=== PATIENT | female | born 1945 ===

== ENCOUNTER 2017-05-12 20:52 | Emergency (ER) | payer MEDICARE, OTHER ==
[2017-05-12 20:52] VITALS: BMI 29.9
[2017-05-12 20:58] VITALS: RESP 20; O2SAT 98
--- NOTE | 2017-05-12 21:02 | C.PDOC ---
Time Seen by Provider: 05/12/17 21:02 Chief Complaint (Nursing): Dizziness/Lightheaded Past Medical History Vital Signs: Last Vital Signs Temp 97.7 F 05/12/17 20:56 Pulse 68 05/12/17 20:56 Resp 20 05/12/17 20:56 BP 158/75 H 05/12/17 20:56 Pulse Ox 98 05/12/17 20:56 - Medical History PMH: Arthritis, Diabetes (NIDDM), Fibromyalgia, Gastritis, HTN, Hypercholesterolemia Denies: Chronic Kidney Disease Surgical History: Cholecystectomy, Endoscopy Family History: States: Unknown Family Hx - Social History Hx Tobacco Use: No Hx Alcohol Use: No Hx Substance Use: No - Immunization History Hx Tetanus Toxoid Vaccination: Yes Hx Influenza Vaccination: Yes Hx Pneumococcal Vaccination: Yes ED Course And Treatment O2 Sat by Pulse Oximetry: 98 Disposition Counseled Patient/Family Regarding: Studies Performed, Diagnosis - Disposition Disposition Time: 21:02
--- NOTE | 2017-05-12 21:42 | C.PDOC ---
History Of Present Illness Patient states that her sugar was high at home and she felt somewhat dizzy, No cp, no palpitation, no f/c/n/v. Time Seen by Provider: 05/12/17 21:02 Chief Complaint (Nursing): Dizziness/Lightheaded History Per: Patient History/Exam Limitations: no limitations Onset/Duration Of Symptoms: Hrs Current Symptoms Are (Timing): Still Present Severity: Moderate Pain Scale Rating Of: 4 Current Diabetic Medications: Insulin Causative (Exacerbating) Factor(s): Other Associated Infectious Symptoms: denies: Cough, Nausea, Vomiting Treatment Prior To Provider Evaluation: None Recent travel outside of the [place]: No Additional History Per: Family Past Medical History Reviewed: Historical Data, Nursing Documentation, Vital Signs Vital Signs: Last Vital Signs Temp 97.7 F 05/12/17 20:56 Pulse 68 05/12/17 20:56 Resp 20 05/12/17 20:56 BP 158/75 H 05/12/17 20:56 Pulse Ox 98 05/12/17 22:14 - Medical History PMH: Arthritis, Diabetes (NIDDM), Fibromyalgia, Gastritis, HTN, Hypercholesterolemia Denies: Chronic Kidney Disease Surgical History: Cholecystectomy, Endoscopy Family History: States: No Known Family Hx - Social History Hx Tobacco Use: No Hx Alcohol Use: No Hx Substance Use: No - Immunization History Hx Tetanus Toxoid Vaccination: Yes Hx Influenza Vaccination: Yes Hx Pneumococcal Vaccination: Yes Review Of Systems Constitutional: Negative for: Fever, Chills Eyes: Negative for: Vision Change ENT: Negative for: Throat Pain Cardiovascular: Negative for: Chest Pain, Palpitations Respiratory: Negative for: Shortness of Breath Gastrointestinal: Negative for: Nausea, Vomiting, Abdominal Pain Genitourinary: Negative for: Dysuria Musculoskeletal: Negative for: Back Pain Skin: Negative for: Rash Neurological: Positive for: Dizziness. Negative for: Weakness Psych: Negative for: Anxiety Physical Exam - Physical Exam Appears: Non-toxic, No Acute Distress Skin: Warm, Dry Head: Normacephalic Eye(s): bilateral: Normal Inspection Oral Mucosa: Moist Neck: Supple Chest: Symmetrical Cardiovascular: Rhythm Regular Respiratory: No Rales, No Rhonchi, No Wheezing Gastrointestinal/Abdominal: Soft, No Tenderness, No Distention Back: No CVA Tenderness Extremity: Normal ROM Extremity: Bilateral: Atraumatic, Normal Color And Temperature, Normal ROM Pulses: Left Dorsalis Pedis: Normal, Right Dorsalis Pedis: Normal Neurological/Psych: Oriented x3, Normal Speech, Normal Cognition Gait: Steady ED Course And Treatment - Laboratory Results Result Diagrams: 05/12/17 21:41 05/12/17 21:41 O2 Sat by Pulse Oximetry: 98 Pulse Ox Interpretation: Normal Medical Decision Making Medical Decision Making: Upon provider reevaluation patient is feeling better, is medically stable, and requires no further treatment in the ED at this time. Patient will be discharged home . Counseling was provided and all questions were answered regarding diagnosis and need for follow up withdr hossein. There is agreement to discharge plan. Return if symptoms persist or worsen. Disposition Counseled Patient/Family Regarding: Studies Performed, Diagnosis, Need For Followup - Disposition Referrals: Choco Sequeira [Staff Provider] - Disposition: HOME/ ROUTINE Disposition Time: 21:42 Condition: FAIR Instructions: Diabetic Hyperglycemia (ED) Forms: [employer] (Kittitian) Print Language: SAUDI ARABIAN - Clinical Impression Clinical Impression: Hyperglycemia
[2017-05-12 21:53] LABS: BASO % 0.7 % (0.0-2.0); EOS # 0.2 K/uL (0.0-0.7); EOS % 2.9 % (0.0-4.0); LYMPH # 1.9 K/uL (1.0-4.3); LYMPH % 29.3 % (20.0-40.0); MEAN CORPUSCULAR HEMOGLOBIN 28.7 pg (27.0-31.0); MEAN CORPUSCULAR HGB CONC 33.3 g/dL (33.0-37.0); MEAN PLATELET VOLUME 12.1 fL (7.2-11.7); MONO # 0.6 K/uL (0.0-0.8); MONO % 8.6 % (0.0-10.0); NRBC % 0.2 % (0.0-2.0); RED CELL DISTRIBUTION WIDTH 13.7 % (11.5-14.5); WHITE BLOOD COUNT 6.5 K/uL (4.8-10.8)
[2017-05-12 21:54] LABS: VENOUS BLOOD GAS BASE EXCESS 2.1 mmol/L (0.0-2.0); VENOUS BLOOD GAS PCO2 52 mmHg (40-60); VENOUS BLOOD PH 7.35 (7.32-7.43)
[2017-05-12 21:56] LABS: CHLORIDE 93 mmol/L (98-107); POTASSIUM 4.1 mmol/L (3.6-5.2); SODIUM 130 mmol/L (132-148)
[2017-05-12 21:58] LABS: BILIRUBIN,TOTAL 0.7 mg/dL (0.2-1.3); GFR AFRICAN-AMERICAN > 60
[2017-05-12 21:59] LABS: ALB/GLOB RATIO 1.4 (1.0-2.1); ALKALINE PHOSPHATASE 133 U/L (38-126); ALT/SGPT 26 U/L (9-52); AST/SGOT 10 U/L (14-36); BLOOD UREA NITROGEN 27 mg/dL (7-17); CALCIUM 9.2 mg/dl (8.6-10.4); CARBON DIOXIDE 24 mmol/L (22-30); TOTAL PROTEIN 7.6 g/dL (6.3-8.3)
[2017-05-12 22:02] LABS: GLUCOSE,RANDOM 602 mg/dL (65-105)
[2017-05-12] MEDS ORDERED: (Novolin R) Insulin Human Regular 100 units/ml vial ONE (22:10)
[2017-05-12] MEDS ORDERED: (Novolin R) Insulin Human Regular 100 units/ml vial IV STA (22:10)
[2017-05-12] MEDS ORDERED: Sodium Chloride 0.9% 1,000 ML IV ONE (22:11)
[2017-05-12 23:26] LABS: RBC URINE < 1 /hpf (0-3); URINE BILIRUBIN NEGATIVE (NEGATIVE); URINE BLOOD NEGATIVE (NEGATIVE); URINE COLOR Colorless (YELLOW); URINE GLUCOSE (UA) 3+ mg/dL (Normal); URINE KETONE NEGATIVE (NEGATIVE); URINE LEUKOCYTE ESTERASE NEG Leu/uL (Negative); URINE PROTEIN NEGATIVE (NEGATIVE); URINE UROBILINOGEN NORMAL mg/dL (0.2-1.0); WBC URINE < 1 /hpf (0-5)
[2017-05-12 23:37] VITALS: BP 155/81; PULSE 72; TEMP 98.1
--- NOTE | 2017-05-13 09:27 | RAD ---
PROCEDURE: CHEST RADIOGRAPH, 1 VIEW HISTORY: Diabetic COMPARISON: 08/18/2016 FINDINGS: LUNGS: Diffuse increased interstitial lung markings. No focal infiltrate or effusion. Few scattered areas of increased nodularity in the right suprahilar region and bilateral lung bases which may represent prominent vascularity. PLEURA: No pneumothorax or pleural fluid seen. CARDIOVASCULAR: Calcification at the aortic knob. OSSEOUS STRUCTURES: No significant abnormalities. VISUALIZED UPPER ABDOMEN: Normal. OTHER FINDINGS: None. IMPRESSION: Diffuse increased interstitial lung markings. No focal infiltrate or effusion. Few scattered areas of increased nodularity in the right suprahilar region and bilateral lung bases which may represent prominent vascularity.
== END 2017-05-12 23:27 | disposition home or self-care (01) ==
LOC: C.ER 20:52
DX: E11.9 Type 2 diabetes mellitus without complications (principal); E78.00 Pure hypercholesterolemia, unspecified; I10 Essential (primary) hypertension; M79.7 Fibromyalgia; Z79.4 Long term (current) use of insulin
CPT/HCPCS: 71010; 80053; 81001; 82009; 82803; 82948; 83690; 85025; 96360; 99285; J7040

== ENCOUNTER 2017-06-21 08:18 | Observation (INO) | payer MEDICARE, OTHER ==
[2017-06-21] MEDS ORDERED: Aspirin 325 mg EC Tablets PO STA (08:48)
[2017-06-21 08:58] VITALS: BMI 29.0
[2017-06-21 09:04] LABS: INR 1.1
[2017-06-21 09:07] LABS: ALB/GLOB RATIO 0.9 (1.0-2.1); ALKALINE PHOSPHATASE 77 U/L (38-126); ALT/SGPT 37 U/L (9-52); AST/SGOT 10 U/L (14-36); BILIRUBIN,TOTAL 0.4 mg/dL (0.2-1.3); BLOOD UREA NITROGEN 18 mg/dL (7-17); CALCIUM 8.6 mg/dl (8.6-10.4); CARBON DIOXIDE 26 mmol/L (22-30); CHLORIDE 106 mmol/L (98-107); CHOLESTEROL 229 mg/dL (0-199); GFR AFRICAN-AMERICAN > 60; GLUCOSE,RANDOM 234 mg/dL (65-105); POTASSIUM 3.6 mmol/L (3.6-5.2); SODIUM 136 mmol/L (132-148); TOTAL PROTEIN 8.1 g/dL (6.3-8.3)
[2017-06-21 09:08] LABS: BASO % 0.4 % (0.0-2.0); EOS # 0.1 K/uL (0.0-0.7); EOS % 2.4 % (0.0-4.0); HEMATOCRIT 35.6 % (34.0-47.0); LYMPH % 36.3 % (20.0-40.0); MEAN CELL VOLUME 86.1 fL (81.0-99.0); MEAN CORPUSCULAR HEMOGLOBIN 28.9 pg (27.0-31.0); MEAN CORPUSCULAR HGB CONC 33.5 g/dL (33.0-37.0); MEAN PLATELET VOLUME 11.8 fL (7.2-11.7); MONO # 0.4 K/uL (0.0-0.8); MONO % 7.2 % (0.0-10.0); WHITE BLOOD COUNT 5.6 K/uL (4.8-10.8)
--- NOTE | 2017-06-21 10:22 | C.PDOC ---
History Of Present Illness Marci Austin is a 71 year old female, with a past medical history of HTN, diabetes, and hypercholesterolemia, who was brought to the emergency department by ALS complaining of dizziness, nausea and diaphoresis onset since yesterday. Patient denies chest pain but does state that her throat hurts. When she presented she had an EKG that showed A-fib at a rate of 87 bpm. Patient denies palpitations or any cardiac history. She denies any fever, chills, cough, and shortness of breath. No further medical complaints. PMD: Choco Sequeira Time Seen by Provider: 06/21/17 08:27 Chief Complaint (Nursing): Dizziness/Lightheaded History Per: Patient History/Exam Limitations: no limitations Onset/Duration Of Symptoms: Days (X1) Current Symptoms: dizzines, nausea and diaphoresis Seizure Or Post-ictal Symptoms: None Fall Associated With With Symptoms: No Pain Scale Rating Of: 0 Past Medical History Reviewed: Historical Data, Nursing Documentation, Vital Signs Vital Signs: Last Vital Signs Temp 97.8 F 06/21/17 08:39 Pulse 57 L 06/21/17 10:49 Resp 12 06/21/17 10:49 BP 135/59 L 06/21/17 10:49 Pulse Ox 99 06/21/17 11:03 - Medical History PMH: Arthritis, Diabetes (NIDDM), Fibromyalgia, Gastritis, HTN, Hypercholesterolemia Denies: Chronic Kidney Disease Surgical History: Cholecystectomy, Endoscopy Family History: States: Unknown Family Hx - Social History Hx Tobacco Use: No Hx Alcohol Use: No Hx Substance Use: No - Immunization History Hx Tetanus Toxoid Vaccination: Yes Hx Influenza Vaccination: Yes Hx Pneumococcal Vaccination: Yes Review Of Systems Constitutional: Positive for: Sweats. Negative for: Fever, Chills Respiratory: Negative for: Cough, Shortness of Breath Gastrointestinal: Positive for: Nausea. Negative for: Vomiting Neurological: Positive for: Dizziness. Negative for: Headache Physical Exam - Physical Exam Appears: Other (looks younger than states) Skin: Normal Color, Warm Head: Atraumatic Eye(s): bilateral: Normal Inspection, PERRL, EOMI Nose: Normal Throat: Normal Neck: Normal, Normal ROM Cardiovascular: Rhythm Irregular Respiratory: Rales (mild vasicular crackles ) Extremity: Normal ROM, No Pedal Edema Neurological/Psych: Oriented x3 (awake and alert), Normal Speech ED Course And Treatment - Laboratory Results Result Diagrams: 06/21/17 08:52 06/21/17 08:52 O2 Sat by Pulse Oximetry: 99 (RA) Pulse Ox Interpretation: Normal - Radiology CXR: Viewed By Me, Read By Radiologist CXR Interpretation: Yes: No Acute Disease Medical Decision Making Medical Decision Making: Initial Plan: --EKG --B-Type natriuretic peptide --Comp Metabolic Panel --Lipid Panel --Troponin I --CBC w/ differential --PTT --PT --Chest one view [RAD] --Cardizem 20 mg IVP --Aspirin 325 mg PO --reevaluation -Did an EKG and bpm came down to the 50s, converted to sinus rhythm. Troponin normal but elevated BNP. -Discussed case with Dr. Erazo, pt will be admitted to telemetry for new onset A-fib. 10:19 CXR FINDINGS: LUNGS: No focal infiltrate or effusion. Bibasilar breast and nipple shadows. PLEURA: No pneumothorax or pleural fluid seen. CARDIOVASCULAR: Normal. OSSEOUS STRUCTURES: Degenerative changes in the spine and shoulders. Question loose bodies and or calcific tendinopathy of the bilateral shoulders. VISUALIZED UPPER ABDOMEN: Normal. OTHER FINDINGS: None. IMPRESSION: No active disease. Disposition Discussed With Dr.: Aruna Erazo Doctor Will See Patient In The: Hospital Counseled Patient/Family Regarding: Studies Performed, Diagnosis - Disposition Disposition: HOSPITALIZED - Clinical Impression Clinical Impression: Atrial fibrillation, Dizziness - Scribe Statement Morteza Mejia Provider Attestation: All medical record entries made by the Scribe were at my direction and personally dictated by me. I have reviewed the chart and agree that the record accurately reflects my personal performance of the history, physical exam, medical decision making, and the department course for this patient. I have also personally directed, reviewed, and agree with the discharge instructions and disposition. Decision To Admit - Pt Status Changed To: Hospital Disposition Of: Inpatient - Admit Certification Admit to Inpatient:: After my assessment, the patient will require hospitalization for at least two midnights. This is because of the severity of symptoms shown, intensity of services needed, and/or the medical risk in this patient being treated as an outpatient. - InPatient: Physician Admission Certification: I certify that this patient requires 2 or more midnights of care for the following reason:: new onset A Fib - . Bed Request Type: Telemetry Patient Diagnosis: Atrial fibrillation, Dizziness
--- NOTE | 2017-06-21 19:23 | CP.PCM.HP ---
Past Patient History - Infectious Disease Hx of Infectious Diseases: None - Past Medical History & Family History Past Medical History?: Yes - Past Social History Smoking Status: Never Smoked - CARDIAC Hx Hypercholesterolemia: Yes Hx Hypertension: Yes - PULMONARY Hx Respiratory Disorders: No - NEUROLOGICAL Hx Neurological Disorder: Yes Hx Dizziness: Yes Hx Vertigo: Yes - HEENT Hx HEENT Problems: Yes Hx Cataracts: Yes (LEFT CATARACT SURGERY) Hx Glaucoma: Yes (BOTH EYES) - RENAL Hx Chronic Kidney Disease: No - ENDOCRINE/METABOLIC Hx Endocrine Disorders: Yes Hx Diabetes Mellitus Type 2: Yes - HEMATOLOGICAL/ONCOLOGICAL Hx Blood Disorders: No Hx Blood Transfusions: No - INTEGUMENTARY Hx Dermatological Problems: No - MUSCULOSKELETAL/RHEUMATOLOGICAL Hx Arthritis: Yes Hx Falls: Yes - GASTROINTESTINAL Hx Gastritis: Yes Hx Gastroesophageal Reflux: Yes - GENITOURINARY/GYNECOLOGICAL Hx Genitourinary Disorders: No - PSYCHIATRIC Hx Substance Use: No - SURGICAL HISTORY Hx Cholecystectomy: Yes Other/Comment: cornea transplant left - ANESTHESIA Hx Anesthesia: Yes Hx Anesthesia Reactions: No Hx Malignant Hyperthermia: (UNKNOWN) Meds Allergies/Adverse Reactions: Allergies Allergy/AdvReac Type Severity Reaction Status Date / Time No Known Allergies Allergy Verified 05/12/17 20:58 Results - Vital Signs Recent Vital Signs: Last Vital Signs Temp 98.7 F 06/21/17 15:08 Pulse 59 L 06/21/17 16:00 Resp 18 06/21/17 15:08 BP 134/74 06/21/17 15:08 Pulse Ox 99 06/21/17 15:08 - Labs Result Diagrams: 06/21/17 08:52 06/21/17 08:52 Labs: Laboratory Results - last 24 hr 06/21/17 06/21/17 06/21/17 08:52 08:52 08:52 WBC 5.6 RBC 4.13 Hgb 11.9 Hct 35.6 MCV 86.1 MCH 28.9 MCHC 33.5 RDW 13.0 Plt Count 199 MPV 11.8 H Neut % (Auto) 53.7 Lymph % (Auto) 36.3 [place] % (Auto) 7.2 Eos % (Auto) 2.4 Baso % (Auto) 0.4 Neut # 3.0 Lymph # 2.0 [place] # 0.4 Eos # 0.1 Baso # 0.0 PT 12.7 H INR 1.1 APTT 32 Sodium 136 Potassium 3.6 Chloride 106 Carbon Dioxide 26 Anion Gap 8 L BUN 18 H Creatinine 0.8 Est GFR ( Amer) > 60 Est GFR (Non-Af Amer) > 60 POC Glucose (mg/dL) Random Glucose 234 H Calcium 8.6 Total Bilirubin 0.4 AST 10 L ALT 37 Alkaline Phosphatase 77 Troponin I 0.0620 NT-Pro-B Natriuret Pep 1490 H Total Protein 8.1 Albumin 3.8 Globulin 4.3 H Albumin/Globulin Ratio 0.9 L Triglycerides 161 H Cholesterol 229 H LDL Cholesterol Direct 164 H HDL Cholesterol 35 06/21/17 16:55 WBC RBC Hgb Hct MCV MCH MCHC RDW Plt Count MPV Neut % (Auto) Lymph % (Auto) [place] % (Auto) Eos % (Auto) Baso % (Auto) Neut # Lymph # [place] # Eos # Baso # PT INR APTT Sodium Potassium Chloride Carbon Dioxide Anion Gap BUN Creatinine Est GFR ( Amer) Est GFR (Non-Af Amer) POC Glucose (mg/dL) 326 H Random Glucose Calcium Total Bilirubin AST ALT Alkaline Phosphatase Troponin I NT-Pro-B Natriuret Pep Total Protein Albumin Globulin Albumin/Globulin Ratio Triglycerides Cholesterol LDL Cholesterol Direct HDL Cholesterol
[2017-06-21] MEDS: (Novolin R) Insulin Human Regular 100 units/ml vial SC SCH (21:59)
[2017-06-22 06:59] LABS: BASO % 0.6 % (0.0-2.0); EOS # 0.1 K/uL (0.0-0.7); EOS % 2.1 % (0.0-4.0); LYMPH # 1.8 K/uL (1.0-4.3); LYMPH % 31.2 % (20.0-40.0); MEAN CELL VOLUME 86.5 fL (81.0-99.0); MEAN CORPUSCULAR HEMOGLOBIN 29.4 pg (27.0-31.0); MEAN PLATELET VOLUME 12.3 fL (7.2-11.7); MONO # 0.4 K/uL (0.0-0.8); MONO % 7.2 % (0.0-10.0); NRBC % 0.1 % (0.0-2.0); RED CELL DISTRIBUTION WIDTH 13.2 % (11.5-14.5); WHITE BLOOD COUNT 5.7 K/uL (4.8-10.8)
[2017-06-22 07:50] LABS: ALB/GLOB RATIO 1.2 (1.0-2.1); ALKALINE PHOSPHATASE 79 U/L (38-126); ALT/SGPT 30 U/L (9-52); AST/SGOT 31 U/L (14-36); BILIRUBIN,TOTAL 0.3 mg/dL (0.2-1.3); BLOOD UREA NITROGEN 21 mg/dL (7-17); CALCIUM 8.1 mg/dl (8.6-10.4); CARBON DIOXIDE 27 mmol/L (22-30); CHLORIDE 103 mmol/L (98-107); GFR AFRICAN-AMERICAN > 60; GLUCOSE,RANDOM 281 mg/dL (65-105); MAGNESIUM 1.6 mg/dL (1.6-2.3); POTASSIUM 3.8 mmol/L (3.6-5.2); SODIUM 136 mmol/L (132-148); TOTAL PROTEIN 6.3 g/dL (6.3-8.3)
[2017-06-22] MEDS: (Novolin R) Insulin Human Regular 100 units/ml vial SC SCH ×4 (08:14→21:33)
[2017-06-22] MEDS: Enoxaparin 40 mg Syringe SC SCH (09:29)
[2017-06-22] MEDS: GlipiZIDE 10 mg SR Tab PO SCH ×2 (09:29→17:01)
--- NOTE | 2017-06-22 14:02 | CARD ---
APPROVED REPORT EXAM: Two-dimensional and M-mode echocardiogram with Doppler and color Doppler. Other Information Quality : GoodRhythm : INDICATION Atrial Fibrillation 2D DIMENSIONS IVSd1.2 (0.7-1.1cm)LVDd3.5 (3.9-5.9cm) PWd1.2 (0.7-1.1cm)LVDs2.1 (2.5-4.0cm) FS (%) 39.3 %LVEF (%)70.9 (>50%) M-Mode DIMENSIONS Left Atrium (MM)4.34 (2.5-4.0cm)Aortic Root3.13 (2.2-3.7cm) Aortic Cusp Exc.2.03 (1.5-2.0cm) Mitral Valve MV E Mbbqbwnd66.3cm/sMV A Zqldvvdw20.4cm/sE/A ratio0.9 TDI E/Lateral E'0.0E/Medial E'0.0 Tricuspid Valve TR Peak Sidkiehk903db/sTR Peak Gr.[id number] LEFT VENTRICLE The left ventricle is normal size. There is mild concentric left ventricular hypertrophy. The left ventricular function is normal. The left ventricular ejection fraction is within the normal range. There is normal LV segmental wall motion. Transmitral Doppler flow pattern is Grade I-abnormal relaxation pattern. No left ventricle thrombus noted on this study. There is no ventricular septal defect visualized. There is no left ventricular aneurysm. There is no mass noted in the left ventricle. RIGHT VENTRICLE The right ventricle is normal size. There is normal right ventricular wall thickness. The right ventricular systolic function is normal. ATRIA The left atrium is mildly dilated. The right atrium size is normal. The interatrial septum is intact with no evidence for an atrial septal defect. AORTIC VALVE The aortic valve is normal in structure. No aortic regurgitation is present. There is no aortic valvular stenosis. There is no aortic valvular vegetation. MITRAL VALVE The mitral valve is normal in structure. There is no mitral valve stenosis. There is no mitral valve regurgitation noted. TRICUSPID VALVE The tricuspid valve is normal in structure. There is moderate pulmonary hypertension. PULMONIC VALVE The pulmonary valve is normal in structure. There is no pulmonic valvular regurgitation. GREAT VESSELS The aortic root is normal in size. The ascending aorta is normal in size. The pulmonary artery is normal. The IVC is normal in size and collapses >50% with inspiration. PERICARDIAL EFFUSION There is a trace circumferential pericardial effusion. <Conclusion> There is mild concentric left ventricular hypertrophy. Transmitral Doppler flow pattern is Grade I-abnormal relaxation pattern. The left atrium is mildly dilated. There is moderate pulmonary hypertension. LVEF IS 70%.
[2017-06-22 17:59] LABS: TROPONIN I 0.384 ng/mL (0.00-0.120)
--- NOTE | 2017-06-22 23:18 | CP.PCM.PN ---
Subjective - Date & Time of Evaluation Date of Evaluation: 06/22/17 Time of Evaluation: 23:17 - Subjective Subjective: pt has positive troponin no chest pain cardilogy f/u needed may need cardiac intervention Objective - Vital Signs/Intake and Output Vital Signs (last 24 hours): Temp Pulse Resp BP Pulse Ox 98.3 F 64 20 147/73 97 06/22/17 16:00 06/22/17 16:00 06/22/17 16:00 06/22/17 16:00 06/22/17 16:00 Intake and Output: 06/22/17 06/23/17 18:59 06:59 Intake Total 600 Balance 600 - Medications Medications: Current Medications Enoxaparin Sodium (Lovenox) 40 mg SC DAILY [facility] Last Admin: 06/22/17 09:29 Dose: 40 mg Glipizide (Glucotrol Xl) 10 mg PO BID [facility] Last Admin: 06/22/17 17:01 Dose: 10 mg Insulin Human Regular (Novolin R) 0 unit SC ACHS [facility] PRN Reason: Protocol Last Admin: 06/22/17 21:33 Dose: 2 unit Rosuvastatin Calcium (Crestor) 10 mg PO HS [facility] Last Admin: 06/22/17 21:32 Dose: 10 mg Sitagliptin Phosphate (Januvia) 100 mg PO DAILY [facility] Last Admin: 06/22/17 09:29 Dose: 100 mg - Labs Labs: 06/22/17 06:48 06/22/17 06:48 PT 12.7 SECONDS (9.7-12.2) H 06/21/17 08:52 INR 1.1 06/21/17 08:52 APTT 32 SECONDS (21-34) 06/21/17 08:52
[2017-06-23] MEDS: (Novolin R) Insulin Human Regular 100 units/ml vial SC SCH ×4 (08:03→21:20)
[2017-06-23] MEDS: GlipiZIDE 10 mg SR Tab PO SCH ×2 (10:17→17:42)
[2017-06-23] MEDS: Metoprolol Succinate 25 mg XL Tab PO SCH (10:17)
[2017-06-23] MEDS: Enoxaparin 40 mg Syringe SC SCH (10:17)
[2017-06-23] MEDS ORDERED: Midazolam 2 MG/2 ML VIAL ONE (11:32)
[2017-06-23] MEDS ORDERED: Iodixanol 320 MG/ML 100 ML BOTTLE IV ONE (11:33)
[2017-06-23] MEDS ORDERED: Lidocaine 2% Inj (20ml) ONE (11:49)
--- NOTE | 2017-06-23 12:22 | CP.PCM.CON ---
History of Present Illness - History of Present Illness History of Present Illness: Patient seen and evaluated Episode of Rapid a Fib now NSR Positive Troponin Atypical chest pain Diastolic CHF HTN For cath tomorrow Marci Austin is a 71 year old female, with a past medical history of HTN, diabetes, and hypercholesterolemia, who was brought to the emergency department by ALS complaining of dizziness, nausea and diaphoresis onset since yesterday. Patient denies chest pain but does state that her throat hurts. When she presented she had an EKG that showed A-fib at a rate of 87 bpm. Patient denies palpitations or any cardiac history. She denies any fever, chills, cough, and shortness of breath. No further medical complaints. PMD: Choco Sequeira Chief Complaint (Nursing): Dizziness/Lightheaded History Per: Patient History/Exam Limitations: no limitations Onset/Duration Of Symptoms: Days (X1) Current Symptoms: dizzines, nausea and diaphoresis Seizure Or Post-ictal Symptoms: None Fall Associated With With Symptoms: No Pain Scale Rating Of: 0 Past Medical History Reviewed: Historical Data, Nursing Documentation, Vital Signs Vital Signs: Last Vital Signs Temp 97.8 F 06/21/17 08:39 Pulse 57 L 06/21/17 10:49 Resp 12 06/21/17 10:49 BP 135/59 L 06/21/17 10:49 Pulse Ox 99 06/21/17 11:03 - Medical History PMH: Arthritis, Diabetes (NIDDM), Fibromyalgia, Gastritis, HTN, Hypercholesterolemia Denies: Chronic Kidney Disease Surgical History: Cholecystectomy, Endoscopy Family History: States: Unknown Family Hx - Social History Hx Tobacco Use: No Hx Alcohol Use: No Hx Substance Use: No - Immunization History Hx Tetanus Toxoid Vaccination: Yes Hx Influenza Vaccination: Yes Hx Pneumococcal Vaccination: Yes Review Of Systems Constitutional: Positive for: Sweats. Negative for: Fever, Chills Respiratory: Negative for: Cough, Shortness of Breath Gastrointestinal: Positive for: Nausea. Negative for: Vomiting Neurological: Positive for: Dizziness. Negative for: Headache Physical Exam - Physical Exam Appears: Other (looks younger than states) Skin: Normal Color, Warm Head: Atraumatic Eye(s): bilateral: Normal Inspection, PERRL, EOMI Nose: Normal Throat: Normal Neck: Normal, Normal ROM Cardiovascular: Rhythm Irregular Respiratory: Rales (mild vasicular crackles ) Extremity: Normal ROM, No Pedal Edema Neurological/Psych: Oriented x3 (awake and alert), Normal Speech Past Patient History - Infectious Disease Hx of Infectious Diseases: None - Past Medical History & Family History Past Medical History?: Yes - Past Social History Smoking Status: Never Smoked - CARDIAC Hx Hypercholesterolemia: Yes Hx Hypertension: Yes - PULMONARY Hx Respiratory Disorders: No - NEUROLOGICAL Hx Neurological Disorder: Yes Hx Dizziness: Yes Hx Vertigo: Yes - HEENT Hx HEENT Problems: Yes Hx Cataracts: Yes (LEFT CATARACT SURGERY) Hx Glaucoma: Yes (BOTH EYES) - RENAL Hx Chronic Kidney Disease: No - ENDOCRINE/METABOLIC Hx Diabetes Mellitus Type 2: Yes - HEMATOLOGICAL/ONCOLOGICAL Hx Blood Disorders: No Hx Blood Transfusions: No - INTEGUMENTARY Hx Dermatological Problems: No - MUSCULOSKELETAL/RHEUMATOLOGICAL Hx Arthritis: Yes - GASTROINTESTINAL Hx Gastritis: Yes Hx Gastroesophageal Reflux: Yes - GENITOURINARY/GYNECOLOGICAL Hx Genitourinary Disorders: No - PSYCHIATRIC Hx Substance Use: No - SURGICAL HISTORY Hx Cholecystectomy: Yes Other/Comment: cornea transplant left - ANESTHESIA Hx Anesthesia: Yes Hx Anesthesia Reactions: No Hx Malignant Hyperthermia: (UNKNOWN) Meds Home Medications: Home Medication List Medication Instructions Recorded Confirmed Type Apixaban [Eliquis] 2.5 mg PO BID #60 tab 06/24/17 Rx Metoprolol Succinate [Toprol XL] 25 mg PO DAILY #30 tab 06/24/17 Rx amLODIPine 10 mg PO DAILY #10 06/24/17 Rx Allergies/Adverse Reactions: Allergies Allergy/AdvReac Type Severity Reaction Status Date / Time No Known Allergies Allergy Verified 05/12/17 20:58 - Medications Medications: Current Medications Acetaminophen (Tylenol 325mg Tab) 650 mg PO Q6 PRN PRN Reason: Pain, Mild (1-3) Last Admin: 06/23/17 02:28 Dose: 650 mg Enoxaparin Sodium (Lovenox) 40 mg SC DAILY [facility] Last Admin: 06/23/17 10:17 Dose: Not Given Glipizide (Glucotrol Xl) 10 mg PO BID [facility] Last Admin: 06/23/17 10:17 Dose: Not Given Insulin Human Regular (Novolin R) 0 unit SC ACHS [facility] PRN Reason: Protocol Last Admin: 06/23/17 08:03 Dose: Not Given Metoprolol Succinate (Toprol Xl) 25 mg PO DAILY [facility] Last Admin: 06/23/17 10:17 Dose: 25 mg Rosuvastatin Calcium (Crestor) 10 mg PO HS [facility] Last Admin: 06/22/17 21:32 Dose: 10 mg Sitagliptin Phosphate (Januvia) 100 mg PO DAILY [facility] Last Admin: 06/23/17 10:17 Dose: Not Given Results - Vital Signs Recent Vital Signs: Last Vital Signs Temp 98.4 F 06/23/17 07:05 Pulse 61 06/23/17 07:05 Resp 18 06/23/17 07:05 BP 170/74 H 06/23/17 10:19 Pulse Ox 97 06/23/17 07:05 - Labs Result Diagrams: 06/22/17 06:48 06/22/17 06:48 Labs: Laboratory Results - last 24 hr 06/22/17 06/22/17 06/22/17 16:21 17:35 21:21 POC Glucose (mg/dL) 197 H 345 H Total Creatine Kinase 52 CK-MB (Mass) 2.41 Troponin I 0.3840 H* 06/23/17 06/23/17 02:12 06:14 POC Glucose (mg/dL) 288 H 258 H Total Creatine Kinase CK-MB (Mass) Troponin I Assessment & Plan - Assessment and Plan (Free Text) Assessment: Patient seen and evaluated Episode of Rapid a Fib now NSR Positive Troponin Atypical chest pain Diastolic CHF HTN For cath tomorrow
--- NOTE | 2017-06-23 12:24 | CP.PCM.PN ---
Subjective - Date & Time of Evaluation Date of Evaluation: 06/23/17 Time of Evaluation: 12:22 - Subjective Subjective: Patient s/p cath Non Obstructive coronaries Normal EF Normal Aortogram Dx: HTN Diastolic CHF Medical management Ambulate after 4pm today Resume diet D/C Home in am Objective - Vital Signs/Intake and Output Vital Signs (last 24 hours): Temp Pulse Resp BP Pulse Ox 98.4 F 61 18 170/74 H 97 06/23/17 07:05 06/23/17 07:05 06/23/17 07:05 06/23/17 10:19 06/23/17 07:05 Intake and Output: 06/23/17 06/23/17 06:59 18:59 Intake Total 10 Balance 10 - Medications Medications: Current Medications Acetaminophen (Tylenol 325mg Tab) 650 mg PO Q6 PRN PRN Reason: Pain, Mild (1-3) Last Admin: 06/23/17 02:28 Dose: 650 mg Enoxaparin Sodium (Lovenox) 40 mg SC DAILY [facility] Last Admin: 06/23/17 10:17 Dose: Not Given Glipizide (Glucotrol Xl) 10 mg PO BID [facility] Last Admin: 06/23/17 10:17 Dose: Not Given Insulin Human Regular (Novolin R) 0 unit SC ACHS [facility] PRN Reason: Protocol Last Admin: 06/23/17 08:03 Dose: Not Given Metoprolol Succinate (Toprol Xl) 25 mg PO DAILY [facility] Last Admin: 06/23/17 10:17 Dose: 25 mg Rosuvastatin Calcium (Crestor) 10 mg PO HS [facility] Last Admin: 06/22/17 21:32 Dose: 10 mg Sitagliptin Phosphate (Januvia) 100 mg PO DAILY [facility] Last Admin: 06/23/17 10:17 Dose: Not Given - Labs Labs: 06/22/17 06:48 06/22/17 06:48 PT 12.7 SECONDS (9.7-12.2) H 06/21/17 08:52 INR 1.1 06/21/17 08:52 APTT 32 SECONDS (21-34) 06/21/17 08:52
[2017-06-23] MEDS ORDERED: Sodium Chloride 0.45% 1,000 ML IV SCH (12:30)
[2017-06-24 02:10] VITALS: RESP 20
[2017-06-24] MEDS: (Novolin R) Insulin Human Regular 100 units/ml vial SC SCH (08:25)
[2017-06-24 08:32] VITALS: TEMP 98.9; O2SAT 95
--- NOTE | 2017-06-24 09:25 | CP.PCM.PN ---
Subjective - Date & Time of Evaluation Date of Evaluation: 06/23/17 Objective - Vital Signs/Intake and Output Vital Signs (last 24 hours): Temp Pulse Resp BP Pulse Ox 98.9 F 66 20 151/71 H 95 06/24/17 07:15 06/24/17 07:15 06/24/17 07:15 06/24/17 07:15 06/24/17 07:15 Intake and Output: 06/24/17 06/24/17 06:59 18:59 Intake Total 1040 Balance 1040 - Medications Medications: Current Medications Acetaminophen (Tylenol 325mg Tab) 650 mg PO Q6 PRN PRN Reason: Pain, Mild (1-3) Last Admin: 06/23/17 02:28 Dose: 650 mg Amlodipine Besylate (Norvasc) 10 mg PO DAILY [facility] Enoxaparin Sodium (Lovenox) 40 mg SC DAILY [facility] Last Admin: 06/23/17 10:17 Dose: Not Given Glipizide (Glucotrol Xl) 10 mg PO BID [facility] Last Admin: 06/23/17 17:42 Dose: 10 mg Insulin Human Regular (Novolin R) 0 unit SC ACHS [facility] PRN Reason: Protocol Last Admin: 06/24/17 08:25 Dose: 3 unit Metoprolol Succinate (Toprol Xl) 25 mg PO DAILY [facility] Last Admin: 06/23/17 10:17 Dose: 25 mg Rosuvastatin Calcium (Crestor) 10 mg PO HS [facility] Last Admin: 06/23/17 21:15 Dose: 10 mg Sitagliptin Phosphate (Januvia) 100 mg PO DAILY [facility] Last Admin: 06/23/17 10:17 Dose: Not Given - Labs Labs: 06/22/17 06:48 06/22/17 06:48 PT 12.7 SECONDS (9.7-12.2) H 06/21/17 08:52 INR 1.1 06/21/17 08:52 APTT 32 SECONDS (21-34) 06/21/17 08:52
--- NOTE | 2017-06-24 09:25 | CP.PCM.DIS ---
Provider - Provider Date of Admission: 06/21/17 10:21 Attending physician: Aruna Erazo MD Hospital Course - Lab Results Lab Results: Most Recent Lab Values WBC 5.7 K/uL (4.8-10.8) 06/22/17 06:48 RBC 3.82 Mil/uL (3.80-5.20) 06/22/17 06:48 Hgb 11.2 g/dL (11.0-16.0) 06/22/17 06:48 Hct 33.0 % (34.0-47.0) L 06/22/17 06:48 MCV 86.5 fL (81.0-99.0) 06/22/17 06:48 MCH 29.4 pg (27.0-31.0) 06/22/17 06:48 MCHC 34.0 g/dL (33.0-37.0) 06/22/17 06:48 RDW 13.2 % (11.5-14.5) 06/22/17 06:48 Plt Count 187 K/uL (130-400) 06/22/17 06:48 MPV 12.3 fL (7.2-11.7) H 06/22/17 06:48 Neut % (Auto) 58.9 % (50.0-75.0) 06/22/17 06:48 Lymph % (Auto) 31.2 % (20.0-40.0) 06/22/17 06:48 Sumner % (Auto) 7.2 % (0.0-10.0) 06/22/17 06:48 Eos % (Auto) 2.1 % (0.0-4.0) 06/22/17 06:48 Baso % (Auto) 0.6 % (0.0-2.0) 06/22/17 06:48 Neut # 3.4 K/uL (1.8-7.0) 06/22/17 06:48 Lymph # 1.8 K/uL (1.0-4.3) 06/22/17 06:48 Sumner # 0.4 K/uL (0.0-0.8) 06/22/17 06:48 Eos # 0.1 K/uL (0.0-0.7) 06/22/17 06:48 Baso # 0.0 K/uL (0.0-0.2) 06/22/17 06:48 PT 12.7 SECONDS (9.7-12.2) H 06/21/17 08:52 INR 1.1 06/21/17 08:52 APTT 32 SECONDS (21-34) 06/21/17 08:52 Sodium 136 mmol/L (132-148) 06/22/17 06:48 Potassium 3.8 mmol/L (3.6-5.2) 06/22/17 06:48 Chloride 103 mmol/L (98-107) 06/22/17 06:48 Carbon Dioxide 27 mmol/L (22-30) 06/22/17 06:48 Anion Gap 10 (10-20) 06/22/17 06:48 BUN 21 mg/dL (7-17) H 06/22/17 06:48 Creatinine 0.9 mg/dL (0.7-1.2) 06/22/17 06:48 Est GFR ( Amer) > 60 06/22/17 06:48 Est GFR (Non-Af Amer) > 60 06/22/17 06:48 POC Glucose (mg/dL) 234 mg/dL (65-110) H 06/24/17 06:11 Random Glucose 281 mg/dL (65-105) H 06/22/17 06:48 Hemoglobin A1c 9.0 % (4.2-6.5) H 06/22/17 06:48 Calcium 8.1 mg/dl (8.6-10.4) L 06/22/17 06:48 Magnesium 1.6 mg/dL (1.6-2.3) 06/22/17 06:48 Total Bilirubin 0.3 mg/dL (0.2-1.3) 06/22/17 06:48 AST 31 U/L (14-36) 06/22/17 06:48 ALT 30 U/L (9-52) 06/22/17 06:48 Alkaline Phosphatase 79 U/L (38-126) 06/22/17 06:48 Total Creatine Kinase 52 U/L (30-135) 06/22/17 17:35 CK-MB (Mass) 2.41 ng/mL (0.0-3.38) 06/22/17 17:35 Troponin I 0.3840 ng/mL (0.00-0.120) H* 06/22/17 17:35 NT-Pro-B Natriuret Pep 1490 pg/mL (0-900) H 06/21/17 08:52 Total Protein 6.3 g/dL (6.3-8.3) 06/22/17 06:48 Albumin 3.5 g/dL (3.5-5.0) 06/22/17 06:48 Globulin 2.8 gm/dL (2.2-3.9) 06/22/17 06:48 Albumin/Globulin Ratio 1.2 (1.0-2.1) 06/22/17 06:48 Triglycerides 161 mg/dL (0-149) H 06/21/17 08:52 Cholesterol 229 mg/dL (0-199) H 06/21/17 08:52 LDL Cholesterol Direct 164 mg/dL (0-129) H 06/21/17 08:52 HDL Cholesterol 35 mg/dL (30-70) 06/21/17 08:52 Discharge Plan - Follow Up Plan Condition: GOOD Disposition: HOME/ ROUTINE
--- NOTE | 2017-06-24 09:25 | CP.PCM.PN ---
Subjective - Date & Time of Evaluation Date of Evaluation: 06/22/17 Objective - Vital Signs/Intake and Output Vital Signs (last 24 hours): Temp Pulse Resp BP Pulse Ox 98.9 F 66 20 151/71 H 95 06/24/17 07:15 06/24/17 07:15 06/24/17 07:15 06/24/17 07:15 06/24/17 07:15 Intake and Output: 06/24/17 06/24/17 06:59 18:59 Intake Total 1040 Balance 1040 - Medications Medications: Current Medications Acetaminophen (Tylenol 325mg Tab) 650 mg PO Q6 PRN PRN Reason: Pain, Mild (1-3) Last Admin: 06/23/17 02:28 Dose: 650 mg Amlodipine Besylate (Norvasc) 10 mg PO DAILY [facility] Enoxaparin Sodium (Lovenox) 40 mg SC DAILY [facility] Last Admin: 06/23/17 10:17 Dose: Not Given Glipizide (Glucotrol Xl) 10 mg PO BID [facility] Last Admin: 06/23/17 17:42 Dose: 10 mg Insulin Human Regular (Novolin R) 0 unit SC ACHS [facility] PRN Reason: Protocol Last Admin: 06/24/17 08:25 Dose: 3 unit Metoprolol Succinate (Toprol Xl) 25 mg PO DAILY [facility] Last Admin: 06/23/17 10:17 Dose: 25 mg Rosuvastatin Calcium (Crestor) 10 mg PO HS [facility] Last Admin: 06/23/17 21:15 Dose: 10 mg Sitagliptin Phosphate (Januvia) 100 mg PO DAILY [facility] Last Admin: 06/23/17 10:17 Dose: Not Given - Labs Labs: 06/22/17 06:48 06/22/17 06:48 PT 12.7 SECONDS (9.7-12.2) H 06/21/17 08:52 INR 1.1 06/21/17 08:52 APTT 32 SECONDS (21-34) 06/21/17 08:52
[2017-06-24] MEDS: GlipiZIDE 10 mg SR Tab PO SCH (10:05)
[2017-06-24] MEDS: Enoxaparin 40 mg Syringe SC SCH (10:05)
[2017-06-24] MEDS: Metoprolol Succinate 25 mg XL Tab PO SCH (10:05)
[2017-06-24 10:25] VITALS: PULSE 65
--- NOTE | 2017-06-24 10:43 | CP.PCM.PN ---
Subjective - Date & Time of Evaluation Date of Evaluation: 06/24/17 Time of Evaluation: 10:38 - Subjective Subjective: PT CLEARED FOR DISCHARGE HOME BY DR. MELENDEZ AND DR. WOOTEN. PT WILL BE RX METOPROLOL SUCC AND ELIQUIS PER MDS. RX FOR BOTH SENT TO PT'S PHARMACY AND SHE HAS BEEN INSTRUCTED TO ACCESS SPEC TODAY. PT HAS BEEN EDUCATED ON WHAT THE NEW RX ARE FOR AND HOW TO TAKE THEM CORRECTLY. TO CONTINUE OTHER HOME MEDS. PT ALSO STATES SHE TAKES ASA 81 MG PO QD. TO F/U WITH PMD, DR. AMAYA, AND DR. NAIR IN [address] ALSO SEE DR. WOOTEN IN 1 WEEK IF SHE CANNOT SEE DR. AMAYA. SHE IS VERY EAGER AND EXCITED TO BE D/C TODAY. NO FURTHER ORDERS. BELOW ARE THE D/C INSTRUCTIONS GIVEN TO PT. FOLLOW UP WITH DR. AMAYA OR DR. WOOTEN IN THE OFFICE WITHIN 1 WEEK OF DISCHARGE---CALL ON TUESDAY TO MAKE AN APPOINTMENT. FOLLOW UP WITH DR. NAIR (YOUR CLINICAL RN LIAISON) IN THE OFFICE WITHIN 1 WEEK OF DISCHARGE---CALL ON TUESDAY TO MAKE AN APPOINTMENT. TAKE ALL OF YOUR HOME MEDICATIONS USUAL. IT IS VERY IMPORTANT THAT YOU TAKE THE NEW PRESCRIPTION MEDICINES: ELIQUIS ( BLOOD THINNER FOR YOUR IRREGULAR HEART BEAT) TAKE TWICE A DAY (MORNING AND EVENING) AND ALSO METOPROLOL SUCCINATE (FOR YOUR HEART ) TAKE ONCE A DAY ( MORNING). BEFORE YOU RUN OUT OF THESE MEDICINES CONTACT YOUR DOCTOR; IT IS IMPORTANT THAT YOU DON'T SKIP ANY DOSES. IF YOU HAVE ANY FURTHER QUESTIONS OR CONCERNS, CONTACT YOUR DOCTOR. Objective - Vital Signs/Intake and Output Vital Signs (last 24 hours): Temp Pulse Resp BP Pulse Ox 98.9 F 65 20 151/71 H 95 06/24/17 07:15 06/24/17 07:45 06/24/17 07:15 06/24/17 07:15 06/24/17 07:15 Intake and Output: 06/24/17 06/24/17 06:59 18:59 Intake Total 1040 Balance 1040 - Medications Medications: Current Medications Acetaminophen (Tylenol 325mg Tab) 650 mg PO Q6 PRN PRN Reason: Pain, Mild (1-3) Last Admin: 06/23/17 02:28 Dose: 650 mg Amlodipine Besylate (Norvasc) 10 mg PO DAILY [facility] Last Admin: 06/24/17 10:05 Dose: 10 mg Enoxaparin Sodium (Lovenox) 40 mg SC DAILY [facility] Last Admin: 06/24/17 10:05 Dose: 40 mg Glipizide (Glucotrol Xl) 10 mg PO BID [facility] Last Admin: 06/24/17 10:05 Dose: 10 mg Insulin Human Regular (Novolin R) 0 unit SC [facility] PRN Reason: Protocol Last Admin: 06/24/17 08:25 Dose: 3 unit Metoprolol Succinate (Toprol Xl) 25 mg PO DAILY [facility] Last Admin: 06/24/17 10:05 Dose: 25 mg Rosuvastatin Calcium (Crestor) 10 mg PO HS [facility] Last Admin: 06/23/17 21:15 Dose: 10 mg Sitagliptin Phosphate (Januvia) 100 mg PO DAILY [facility] Last Admin: 06/24/17 10:05 Dose: 100 mg - Labs Labs: 06/22/17 06:48 06/22/17 06:48 PT 12.7 SECONDS (9.7-12.2) H 06/21/17 08:52 INR 1.1 06/21/17 08:52 APTT 32 SECONDS (21-34) 06/21/17 08:52
[2017-06-24 11:37] VITALS: BP 155/71
--- NOTE | 2017-06-26 21:38 | CARDCATH ---
PROCEDURE DATE: 06/23/2017 PROCEDURES: 1. Left heart catheterization. 2. Coronary angiogram. 3. Aortic root angiogram. 4. Radiological supervision and radiological interpretation of the left heart catheterization, coronary angiogram and aortic root angiogram. REFERRING PHYSICIAN: Aruna Erazo MD PERFORMING PHYSICIAN: Robert Ospina M.D. CLINICAL INDICATIONS: 1. Angina. 2. Hypertension. 3. Hyperlipidemia. 4. Tachycardia. PROCEDURE: After informed consent, the patient was prepped and draped in the usual sterile fashion. 2% lidocaine was given in the right groin for local anesthesia. Using micropuncture technique, 6-Thai sheath was introduced into right common femoral artery. Left main coronary artery was engaged using JL4, 6-Thai diagnostic catheter. Contrast injected and left coronary angiogram was performed. Right coronary artery was engaged using 6-Thai JR4 diagnostic catheter. Contrast injected and right coronary angiogram was performed. A pigtail catheter crossed into left ventricle across the aortic valve. LV end-diastolic pressure measured. Contrast injected, LV angiogram was performed. Pigtail catheter was pulled back into aorta. Gradient across the aortic valve was measured. With the power injector, aortic root angiogram was performed. The patient tolerated the procedure well. FINDINGS: 1. Left main coronary artery is patent. 2. LAD and diagonal branches are patent. 3. Ramus artery has 50% ostial nonobstructive stenosis. 4. Left circumflex and obtuse marginal branches are patent. 5. Right coronary artery is dominant and patent. 6. LV ejection fraction is approximately 60%. No wall motion abnormalities noted. EDP is 18. No gradient across the aortic valve. 7. Aortic root angiogram has demonstrated normal size. There is no evidence of aortic dissection or aortic aneurysm. 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 PLAN: Recommend medical management. Robert Ospina MD
== END 2017-06-24 11:25 | disposition home or self-care (01) ==
LOC: C.ER 08:18 → C.9E 10:21 → INTOOBSV 10:21 → C.6T 13:07
PROVIDERS: ADMIT Internal Medicine; ATTEND Internal Medicine
DX: I25.10 Atherosclerotic heart disease of native coronary artery without angina pectoris (principal); E78.00 Pure hypercholesterolemia, unspecified; I11.0 Hypertensive heart disease with heart failure; I50.30 Unspecified diastolic (congestive) heart failure
CPT/HCPCS: 36415; 71010; 80053; 80061; 82948; 83036; 83735; 83880; 84484; 85025; 85610; 85730; 93306; 93452; 96374; 97116; 97162; 99285; C9113; G0378; G8978; G8979; J0360; J1644; J1650; J2250; J2405; J3010; J7030; Q9967